=== PATIENT | female | born 1995 | race Hispanic/Latino ===

== ENCOUNTER 2018-07-20 07:24 | Inpatient (IN) ==
[2018-07-20] MEDS ORDERED: PEPCID PO PRN (07:38)
[2018-07-20] MEDS ORDERED: KEFZOL 1 GM/D5W 1 GM/50 ML IVPB IV PRN (07:38)
[2018-07-20] MEDS ORDERED: PEPCID IV PRN (07:38)
[2018-07-20] MEDS ORDERED: REGLAN PO ONE (07:38)
[2018-07-20] MEDS ORDERED: ZOFRAN IV PRN (07:38)
[2018-07-20] MEDS ORDERED: PEPCID PO ONE (07:38)
[2018-07-20] MEDS ORDERED: STADOL IV PRN (07:38)
[2018-07-20] MEDS ORDERED: TYLENOL PO PRN (07:38)
[2018-07-20] MEDS ORDERED: XYLOCAINE-MPF 1% INJ PRN ×2 (07:40→09:57)
[2018-07-20] MEDS ORDERED: MINERAL OIL TOP PRN (07:40)
[2018-07-20] MEDS ORDERED: PITOCIN 30 UNITS/NS 30 UNIT/500 ML IV.SOLN IV SCH ×2 (07:45→10:00)
[2018-07-20] MEDS ORDERED: LR 1,000 ML IV SCH (07:45)
[2018-07-20] MEDS ORDERED: SODIUM CHLORIDE 0.9% INJ SCH (07:45)
[2018-07-20 08:29] LABS: URINE SOURCE VOIDED
[2018-07-20 08:32] LABS: BASO# 0.02 X1000 (0.0-0.2); BASO% 0.2 % (0.0-0.8); HEMATOCRIT 37.2 % (37.0-47.0); HEMOGLOBIN 12.6 g/dL (12.0-16.0); IMM GRAN# 0.06 X1000 (0.0-0.04); IMM GRAN% 0.5 % (0.0-0.5); LYMPH# 2.13 X1000 (1.2-3.4); LYMPH% 16.6 % (20.5-51.1); MCH 29.8 PG (27-31); MCHC 33.9 g/dL (33-37); MCV 87.9 FL (81-99); MONO# 0.64 X1000 (0.11-0.59); MPV 13.4 FL (7.4-10.4); NEUT# 9.97 X1000 (1.4-6.5); NEUT% 77.7 % (42.2-75.2); PLT 185 X1000 (130-400); RBC 4.23 XMIL (4.2-5.4); RDW 14.9 % (11.5-14.5); WBC 12.82 X1000 (4.8-10.8)
[2018-07-20 08:34] LABS: BILIRUBIN URINE NEGATIVE (NEGATIVE); BLOOD URINE 4+ (NEGATIVE); GLUCOSE URINE NEGATIVE (NEGATIVE); KETONE URINE TRACE mg/dL (NEGATIVE); LEUKOCYTES URINE 2+ (NEGATIVE); NITRITE URINE NEGATIVE (NEGATIVE); PH URINE 6.5; PROTEIN URINE 1+(30 mg/dL) mg/dL (NEGATIVE); SP GRAVITY URINE 1.015; UROBILINOGEN URINE 4 mg/dL
[2018-07-20 08:35] LABS: CLARITY CLEAR (CLEAR); COLOR YELLOW
--- NOTE | 2018-07-20 09:17 | HISTORY AND PHYSICAL ---
HISTORY OF PRESENT ILLNESS: Patient is a 23-year-old, female, G4, P3 presented with roughly 39 weeks with complaints of uterine contractions. She has not had care this . She was seen last week as an outpatient in labor and delivery. Ultrasound did show her to be 38 weeks. The patient at that time was 2.5 to 3 cm. Today, when she presents she is 6 cm dilated. Denies rupture of membranes and no vaginal bleeding. PAST MEDICAL HISTORY: Unremarkable. PAST SURGICAL HISTORY: None. PAST OB HISTORY: G4, P3, spontaneous vaginal delivery x3. FAMILY HISTORY: Unremarkable. REVIEW OF SYSTEMS: All systems reviewed and noncontributory. SOCIAL HISTORY: Tobacco use none. Alcohol use none. MEDICATIONS: None. ALLERGIES: No known drug allergies. PHYSICAL EXAMINATION: VITAL SIGNS: Height 5 feet 0 inches, weight 130 pounds. Temperature 97.6 degrees, pulse of 74, respirations 20, blood pressure 126/87, and heart rate 120 with [id number] variability. HEENT: Pupils equal, round, and reactive to light and accommodation. Extraocular movements intact. Oropharynx clear. NECK: Supple. No thyromegaly. LUNGS: Clear to auscultation. HEART: Regular rate and rhythm. ABDOMEN: Gravid, nontender. PELVIC: Cervix was 6 cm dilated, which is a change from last week when she presented. Membranes intact. EXTREMITIES: No clubbing, cyanosis, or edema noted. NEUROLOGIC: Cranial nerves 2-12 grossly intact. Motor 5/5. DTRs 2+ bilaterally. ASSESSMENT AND PLAN: A 23-year-old female, G4, P3 at 39 weeks gestation in active labor. The patient had a group B strep performed last week, and the results are negative. The patient will be admitted, and anticipate a vaginal delivery. cc: Gianni Hays III, MD
[2018-07-20] MEDS ORDERED: PITOCIN IM PRN (09:57)
[2018-07-20] MEDS ORDERED: NORCO-10 PO PRN (09:57)
[2018-07-20] MEDS ORDERED: MINERAL OIL PO PRN (09:57)
[2018-07-20] MEDS ORDERED: BOOSTRIX VACCINE IM ONE (09:57)
[2018-07-20] MEDS ORDERED: M-M-R II VACCINE SUBQ ONE (09:57)
[2018-07-20] MEDS ORDERED: ATARAX PO PRN (09:57)
[2018-07-20] MEDS ORDERED: PERI MEDS (DERMOPLAST/NUPERCAINAL/TUCKS) MISC PRN (09:57)
[2018-07-20] MEDS ORDERED: HYDROXYZINE IM PRN (09:57)
[2018-07-20] MEDS ORDERED: AMBIEN PO PRN (09:57)
[2018-07-20] MEDS ORDERED: BENADRYL PO PRN (09:57)
[2018-07-20] MEDS ORDERED: CYTOTEC PO PRN (09:57)
[2018-07-20] MEDS ORDERED: BENADRYL IV PRN (09:57)
[2018-07-20] MEDS ORDERED: PITOCIN 20 UNITS/NS 20 UNITS/1,000 ML IV.SOLN IV SCH (10:00)
--- NOTE | 2018-07-20 10:14 | OPERATIVE NOTE ---
PROCEDURE DATE: 07/20/2018 PROCEDURE: Vaginal delivery. DESCRIPTION OF PROCEDURE: The patient progressed to complete and pushing. Had spontaneous vaginal delivery of a male , 7 pounds 0 ounces with Apgars of 9 and 10 at 9:44 on 07/20/2018 over intact perineum. Placenta was delivered intact with 3 vessel cord. was bulb suctioned at the nose and mouth upon delivery. Anesthesia none. All counts were correct x3. Estimated Blood Loss 150 mL. cc: Gianni Hays III, MD
[2018-07-20] MEDS: MOTRIN PO PRN ×2 (13:53→21:57)
[2018-07-20] MEDS: NORCO-5 PO PRN ×2 (13:53→21:57)
[2018-07-20] MEDS: PERICOLACE PO SCH (21:57)
[2018-07-21 06:42] LABS: BASO# 0.03 X1000 (0.0-0.2); BASO% 0.3 % (0.0-0.8); EOS# 0.05 X1000 (0.0-0.7); EOS% 0.4 % (0.0-10.0); HEMATOCRIT 33.5 % (37.0-47.0); IMM GRAN# 0.05 X1000 (0.0-0.04); IMM GRAN% 0.4 % (0.0-0.5); LYMPH# 2.47 X1000 (1.2-3.4); LYMPH% 20.6 % (20.5-51.1); MCH 29.3 PG (27-31); MCHC 32.8 g/dL (33-37); MCV 89.1 FL (81-99); MONO# 0.55 X1000 (0.11-0.59); MONO% 4.6 % (1.7-9.3); MPV 12.6 FL (7.4-10.4); NEUT# 8.84 X1000 (1.4-6.5); NEUT% 73.7 % (42.2-75.2); PLT 180 X1000 (130-400); RBC 3.76 XMIL (4.2-5.4); RDW 15.1 % (11.5-14.5); WBC 11.99 X1000 (4.8-10.8)
--- NOTE | 2018-07-21 14:06 | OB/GYN PROGRESS NOTE ---
Progress Note OB - . Patient Problems: Current Active Problems Problem Status Onset Normal labor and delivery Acute Intrauterine Acute OB Progress Note: Vital Signs - 24 hr 07/20/18 14:45 07/20/18 22:00 07/21/18 08:47 Temperature 98.3 F 97.9 F 97.9 F Pulse Rate 63 60 58 L Respiratory Rate 20 18 16 Blood Pressure 119/74 100/55 111/71 O2 Sat by Pulse Oximetry 98 98 99 Laboratory Results - last 24 hr 07/21/18 06:24 WBC 11.99 H RBC 3.76 L Hgb 11.0 L Hct 33.5 L MCV 89.1 MCH 29.3 MCHC 32.8 L RDW Std Deviation 15.1 H Plt Count 180 MPV 12.6 H Immature Gran % (Auto) 0.4 Neut % (Auto) 73.7 Lymph % (Auto) 20.6 [place] % (Auto) 4.6 Eos % (Auto) 0.4 Baso % (Auto) 0.3 Immature Gran # (Auto) 0.05 H Neut # (Auto) 8.84 H Lymph # (Auto) 2.47 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
[2018-07-21] MEDS: PERICOLACE PO SCH (20:22)
[2018-07-21] MEDS: MOTRIN PO PRN (20:22)
[2018-07-21] MEDS: NORCO-5 PO PRN (20:22)
[2018-07-21 23:47] VITALS: BP 105/59
--- NOTE | 2018-07-22 07:56 | OB/GYN PROGRESS NOTE ---
Progress Note OB - . Patient Problems: Current Active Problems Problem Status Onset Normal labor and delivery Acute Intrauterine Acute OB Progress Note: Vital Signs - 24 hr 07/21/18 08:47 07/21/18 20:15 07/21/18 23:45 Temperature 97.9 F 97.1 F L 96.8 F L Pulse Rate 58 L 68 65 Respiratory Rate 16 18 18 Blood Pressure 111/71 105/62 105/59 O2 Sat by Pulse Oximetry 99 97 97 HPI: Pt seen and examined. Currently w/o complaints. Pain well controlled on PO pain meds. Tolerating regular diet, denies nausea/vomiting. Ambulating and urinating w/o difficulty. Decreased lochia noted. Denies fever/chills. VS: please see above GEN: NAD CV: RRR. +S1S2 RESP: CTA b/l ABD: soft, NTTP, fundus firm, 2 cm below umbilicus EXT: neg CT LABS: please see above ASSESSMENT: 23 yo PPD #2 s/p PLAN: -Continue PO pain meds -Continue regular diet -OOB-->amulation -Encouraged on breast feeding -Continue routine care -Plan for d/c home today
== END 2018-07-22 10:20 | disposition home or self-care (01) | DRG 807 ==
LOC: P.NBC 07:24 → P.LD 07:25
PROVIDERS: ADMIT Obstetrics & Gynecology; ATTEND Obstetrics & Gynecology
CPT/HCPCS: 59025; 81003; 85025; 86592; A9270; J0595; J2405; J2590; J7120